=== PATIENT | female | born 1985 | race Caucasian/White ===

== ENCOUNTER 2016-04-12 19:15 | Emergency (ER) | payer OTHER ==
[2016-04-12 19:23] VITALS: TEMP 98.2
[2016-04-12] MEDS ORDERED: AMOXICILLIN/CLAVULANATE POT 875/125 MG TAB PO ONE (20:41)
--- NOTE | 2016-04-12 20:44 | EDPHY ---
H & P Time Seen by Provider: 04/12/16 20:08 HPI/ROS: CHIEF COMPLAINT: Dog bite left thigh HISTORY OF PRESENT ILLNESS: 30-year-old female presents to the emergency department by private vehicle with a dog bite to the posterior aspect of her left thigh. The patient was at a dog park and she was trying to grab her own dog and was subsequently bit by another dog. She did speak with the cna ltc. She states that she had jeans on and she did not think that the dog had drawn any blood. She did not exchange any information with the dog cna ltc. She believes her tetanus shot is current. ROS: Denies retained foreign body or other injuries. Past Medical/Surgical History: Negative Social History: Single and lives in [place] Smoking Status: Never smoked Physical Exam: On examination the patient has superficial abrasion to the posterior aspect of the left distal thigh. This is superior to the knee. There is no active bleeding noted. No ecchymosis. Full range of motion of her left lower extremity. Normal gait. No palpable bony tenderness or deformity. Constitutional: Initial Vital Signs Temperature (C) 36.8 C 04/12/16 19:21 Heart Rate 90 04/12/16 19:21 Respiratory Rate 18 04/12/16 19:21 Blood Pressure 142/77 H 04/12/16 19:21 O2 Sat (%) 98 04/12/16 19:21 O2 Delivery Mode Room Air Allergies/Adverse Reactions: No Known Allergies Allergy (Unverified 11/23/14 12:18) Home Medications: Medication Instructions Recorded Amoxicillin/Clavulanate Pot 875 mg PO BID #10 tab 04/12/16 [Augmentin 875 mg tab] Lutera-28 Tablet 04/12/16 Medical Decision Making ED Course/Re-evaluation: 30-year-old female presents with dog bite to the left posterior thigh. Animal Control was contacted and they came to talk with the patient while she was in the emergency department. The patient will be treated with Augmentin to prevent infection. Her tetanus shot is current. I explained to the patient that the likelihood of this being a rabbit animal given that was domesticated with an ulnar at a dog park, is very low. This was also provoked incident where she was trying to grab her own dog and was bit by this other dog. Patient is comfortable not initiating rabies vaccine. Patient was given wound care precautions and will return if she has any other concerns. - Data Points Medications Given: Discontinued Medications Amoxicillin/Clavulanate Potassium (Augmentin 875mg) 875 mg PO EDNOW ONE PRN Reason: Protocol Stop: 04/12/16 20:42 Last Admin: 04/12/16 21:00 Dose: 875 mg Departure - Departure Disposition: Home, Routine, Self-Care Clinical Impression: Dog bite of left thigh without complication Qualifiers: Encounter type: initial encounter Qualifier Code: (S71.152A) Open bite, left thigh, initial encounter Condition: Good Instructions: Amoxicillin/Clavulanate Potassium (By mouth), Animal Bite (ED), Acute Wound Care (ED) Additional Instructions: Augmentin 875mg twice daily for 5 days to prevent infection. Return if you notice any signs or symptoms of infection such as redness, swelling, increased pain, fever, purulent drainage. Ibuprofen 600 mg every 8 hours as needed for pain. Referrals: Denise Sarmiento PA [Primary Care Provider] - As per Instructions Prescriptions: Amoxicillin/Clavulanate Pot [Augmentin 875 mg tab] 875 mg PO BID #10 tab
[2016-04-12 21:02] VITALS: BP 123/83; PULSE 72; RESP 16; O2SAT 95
== END 2016-04-12 21:01 | disposition home or self-care (01) ==
DX: S71.152A Open bite, left thigh, initial encounter (principal); W54.0XXA Bitten by dog, initial encounter; Y92.89 Other specified places as the place of occurrence of the external cause